=== PATIENT | female | born 1985 | race American Indian/Alaskan Native ===

== ENCOUNTER 2022-01-04 20:07 | Emergency (ER) | payer MEDICAID, OTHER ==
[~2022-01-04] VITALS: Ht 152.4 cm; Wt 51.4 kg
[~2022-01-04 20:07] MED LIST: NITR100C6 PO; PHEN-716 PO
[2022-01-04 20:20] VITALS: BP 146/92
== END 2022-01-05 01:36 | disposition left against medical advice (07) ==
LOC: ER 20:08
DX: R44.0 Auditory hallucinations (principal); F10.129 Alcohol abuse with intoxication, unspecified; Z53.21 Procedure and treatment not carried out due to patient leaving prior to being seen by health care provider; Y90.9 Presence of alcohol in blood, level not specified

== ENCOUNTER 2022-01-05 07:19 | Emergency (ER) | payer MEDICAID, OTHER ==
[~2022-01-05] VITALS: Ht 149.9 cm; Wt 51.7 kg
[2022-01-05 07:31] VITALS: BP 136/90
--- NOTE | 2022-01-05 07:43 | NUR ---
FABY CALLED AND REPORTED. [facility] [address] CALLED FOR [facility] PT RETURNED TO LOBBY WITH FRIEND
--- NOTE | 2022-01-05 08:36 | NUR ---
[employer] OFFICER AT BEDSIDE
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
== END 2022-01-05 09:40 | disposition home or self-care (01) ==
LOC: ER 07:20 → EEVIPCON 07:20 → ER 09:40
DX: F10.20 Alcohol dependence, uncomplicated (principal); F17.200 Nicotine dependence, unspecified, uncomplicated; F12.90 Cannabis use, unspecified, uncomplicated
CPT/HCPCS: 99281; 99283

== ENCOUNTER 2022-01-09 13:49 | Emergency (ER) | payer MEDICAID ==
[~2022-01-09] VITALS: Ht 149.9 cm; Wt 50.0 kg
[2022-01-09 13:55] VITALS: BP 120/85
[2022-01-09] MEDS ORDERED: CHLO25CA10 PO (15:18)
== END 2022-01-09 15:44 | disposition home or self-care (01) ==
LOC: ER 13:50
DX: F10.239 Alcohol dependence with withdrawal, unspecified (principal); F12.90 Cannabis use, unspecified, uncomplicated
CPT/HCPCS: 99283